=== PATIENT | female | born 1935 | race Caucasian/White ===

== ENCOUNTER 2022-01-03 06:24 | Inpatient (IN) | payer MEDICARE, OTHER ==
[~2022-01-03] VITALS: Ht 152.4 cm; Wt 42.2 kg
[~2022-01-03 06:24] MED LIST: ALL DAY ALLERGY10 M2 PO; ASPIRIN EC81 MG PO; CEPHALEXIN250 MG PO; CLEARLAX238 GM PO; FERREX 150150 MG PO; FIBER THERAPY660 GM PO; LASIX20 MG PO; MOBIC7.5 MG PO; OMEPRAZOLE40 MG PO; TOPROL XL 25MG25 MG PO; ULTRAM50 MG PO; VENTOLIN (2.5 MG/3 M INH; VISION FORMULA1 EAC1 PO; VITAMIN B-121000 MC1 PO; ZOCOR40 MG PO
[2022-01-03 06:46] LABS: BASOPHIL 0.2 % (0-2); EOSINOPHIL 0.1 % (0-7); HCT 44.4 % (37.0-47.0); HGB 14.6 g/dl (12.5-16.0); LYMPHOCYTE 17.9 % (15-48); MCH 30.5 pg (25.0-31.0); MCHC 32.9 g/dL (32.0-36.0); MCV 92.7 fL (78.0-100.0); MONOCYTE 7.4 % (0-12); MPV 10.7 fL (6.0-9.5); NRBC 0; PLT 196 K/uL (150-400); RBC 4.79 M/uL (4.20-5.40); RDW 12.8 % (11.5-14.0); WBC 10.4 K/uL (4.0-10.5)
[2022-01-03 07:18] LABS: ALKALINE PHOSHATASE 117 U/L (46-116); ALT 33 U/L (14-59); AST 36 U/L (15-37); BILIRUBIN - TOTAL 0.6 mg/dL (0.2-1.0); BUN 54 mg/dL (7-18); BUN/CREAT RATIO (CALC) 22.3 RATIO; C-REACTIVE PROTEIN < 0.20 mg/dL (<=0.90); CHLORIDE 98 mmol/L (98-107); CO2 (BICARBONATE) 31 mmol/L (21-32); CREATININE 2.42 mg/dL (0.51-0.95); GLOBULIN (CALCULATION) 4.1 g/dL; GLUCOSE 118 mg/dL (74-106); POTASSIUM 3.8 mmol/L (3.5-5.1); TOTAL PROTEIN 7.1 g/dL (6.4-8.2)
[2022-01-03 09:30] LABS: BILIRUBIN NEGATIVE (NEGATIVE); BLOOD NEGATIVE Ery/uL (NEGATIVE); CLARITY CLEAR (CLEAR); COLOR YELLOW (YELLOW); GLUCOSE (U) NORMAL (NORMAL); LEUKOCYTES NEGATIVE Leu/uL (NEGATIVE); NITRITE POSITIVE (NEGATIVE); PROTEIN NEGATIVE (NEGATIVE); UROBILINOGEN 0.2 mg/dL (0.2-1.0); pH 5.5 (5.0-9.0)
[2022-01-03 09:52] LABS: BACTERIA 2+; URINARY WBC RARE
[2022-01-03] MEDS ORDERED: MUCINEX 600MG600 MG PO (17:34)
[2022-01-03] MEDS ORDERED: UROCIT-K10 MEQ PO (17:34)
[2022-01-03] MEDS ORDERED: VIBRAMYCIN100 MG PO (17:35)
[2022-01-03] MEDS ORDERED: VITAMIN B-121000 MC1 PO (17:35)
[2022-01-03 18:49] LABS: BUN 46 mg/dL (7-18); BUN/CREAT RATIO (CALC) 35.9 RATIO; CHLORIDE 101 mmol/L (98-107); CO2 (BICARBONATE) 29 mmol/L (21-32); CREATININE 1.28 mg/dL (0.51-0.95); GLUCOSE 82 mg/dL (74-106); LIPASE >2250 U/L (73-393); POTASSIUM 3.6 mmol/L (3.5-5.1)
[2022-01-04 06:37] LABS: BASOPHIL 0.2 % (0-2); EOSINOPHIL 0.2 % (0-7); HCT 40.8 % (37.0-47.0); HGB 13.6 g/dl (12.5-16.0); LYMPHOCYTE 12.4 % (15-48); MCH 30.4 pg (25.0-31.0); MCHC 33.3 g/dL (32.0-36.0); MCV 91.1 fL (78.0-100.0); MONOCYTE 8.3 % (0-12); MPV 11.2 fL (6.0-9.5); NEUTROPHIL 78.6 % (41-80); NRBC 0; PLT 166 K/uL (150-400); RBC 4.48 M/uL (4.20-5.40); RDW 12.8 % (11.5-14.0); WBC 11.6 K/uL (4.0-10.5)
[2022-01-04 07:09] LABS: BUN/CREAT RATIO (CALC) 33.3 RATIO; CREATININE 1.02 mg/dL (0.51-0.95); POTASSIUM 3.3 mmol/L (3.5-5.1)
--- NOTE | 2022-01-04 10:52 | NUR ---
01/04/22 Please consider full admit or discharge. Thank You.
[2022-01-05 04:35] LABS: BASOPHIL 0.2 % (0-2); EOSINOPHIL 0.3 % (0-7); HCT 36.1 % (37.0-47.0); LYMPHOCYTE 11.9 % (15-48); MCH 30.2 pg (25.0-31.0); MCHC 33.2 g/dL (32.0-36.0); MCV 90.9 fL (78.0-100.0); MPV 10.8 fL (6.0-9.5); NEUTROPHIL 78.2 % (41-80); NRBC 0; PLT 141 K/uL (150-400); RBC 3.97 M/uL (4.20-5.40); RDW 12.8 % (11.5-14.0); WBC 11.8 K/uL (4.0-10.5)
[2022-01-05 04:53] LABS: CREATININE 0.81 mg/dL (0.51-0.95); POTASSIUM 3.8 mmol/L (3.5-5.1)
[2022-01-05] MEDS ORDERED: ULTRAM50 MG PO (08:39)
[2022-01-06 06:31] LABS: BASOPHIL 0.1 % (0-2); EOSINOPHIL 1.5 % (0-7); HCT 33.6 % (37.0-47.0); LYMPHOCYTE 12.9 % (15-48); MCH 30.4 pg (25.0-31.0); MCHC 32.7 g/dL (32.0-36.0); MCV 92.8 fL (78.0-100.0); MONOCYTE 8.2 % (0-12); MPV 10.7 fL (6.0-9.5); NEUTROPHIL 76.7 % (41-80); NRBC 0; PLT 145 K/uL (150-400); RBC 3.62 M/uL (4.20-5.40); WBC 11.4 K/uL (4.0-10.5)
[2022-01-06 07:14] LABS: BUN/CREAT RATIO (CALC) 17.6 RATIO; CREATININE 0.91 mg/dL (0.51-0.95); POTASSIUM 3.3 mmol/L (3.5-5.1)
--- NOTE | 2022-01-06 16:32 | NUR ---
01/06/22 Ms. Casas lives alone, She has a rw and cane. Communication took place through writing. - Ms. Casas requested to go to [facility]. However, they so not accept patients positive with COVID. [facility] will consider accepting her. Ms. Casas requested to go home with [facility] . This information was relayed to her son, Edgar Casas. He agreed to transport home.
== END 2022-01-06 17:57 | disposition home or self-care (01) | DRG 177 ==
LOC: FER 06:24 → FMS 09:56
PROVIDERS: Emergency Medicine; Family Medicine; ADMIT Internal Medicine
PROC: 8E0ZXY6 Isolation (ICD-10-PCS; principal; 2022-01-03)
DX: U07.1 COVID-19 (principal); K85.90 Acute pancreatitis without necrosis or infection, unspecified; N17.9 Acute kidney failure, unspecified; L08.9 Local infection of the skin and subcutaneous tissue, unspecified; I25.10 Atherosclerotic heart disease of native coronary artery without angina pectoris; J44.9 Chronic obstructive pulmonary disease, unspecified; K21.9 Gastro-esophageal reflux disease without esophagitis; E53.8 Deficiency of other specified B group vitamins; E86.0 Dehydration; I73.9 Peripheral vascular disease, unspecified; L97.529 Non-pressure chronic ulcer of other part of left foot with unspecified severity; R82.71 Bacteriuria; I10 Essential (primary) hypertension; E78.5 Hyperlipidemia, unspecified; I87.2 Venous insufficiency (chronic) (peripheral); Z96.643 Presence of artificial hip joint, bilateral; Z88.2 Allergy status to sulfonamides; Z88.1 Allergy status to other antibiotic agents; Z79.82 Long term (current) use of aspirin; Z79.899 Other long term (current) drug therapy; Z90.49 Acquired absence of other specified parts of digestive tract; Z90.711 Acquired absence of uterus with remaining cervical stump; Z98.49 Cataract extraction status, unspecified eye; Z98.890 Other specified postprocedural states
CPT/HCPCS: 36415; 71045; 80048; 80053; 81001; 83690; 84145; 84484; 85025; 86140; 93005; 94010; 94760; 97162; 97166; 97530; 97530-GP; 97535; G0378; J0360; J0696; J1650; J2405; J7030; U0002